=== PATIENT | female | born 1945 | race Hispanic/Latino ===

== ENCOUNTER 2017-04-26 06:17 | Day surgery (SDC) | payer OTHER ==
[~2017-04-26] VITALS: Ht 162.6 cm; Wt 81.1 kg
[~2017-04-26 06:17] MED LIST: ASPI-1181 PO; CHRO1TAB7 PO; DOCU100T9 PO; GABA-531 PO; LOSA100T29 PO; METF10004 PO; MULT-952 PO; PRAV20TA4 PO; VERE240SR PO; VITAMIN B12 PO
[2017-04-26] MEDS ORDERED: SODIUM CHLORIDE 0.9% 1000ML 1,000 ML IV ONE (06:33)
[2017-04-26 07:26] VITALS: BP 155/82
[2017-04-26] MEDS ORDERED: PROPOFOL 10 MG/ML 20ML VIAL IV ONE ×2 (09:53)
[2017-04-26 10:10] VITALS: BP 101/51
== END 2017-04-26 10:45 | disposition home or self-care (01) ==
LOC: ENDO 06:17 → DAH 06:17 → ENDO 10:45
PROVIDERS: ATTEND Internal Medicine
DX: C21.8 Malignant neoplasm of overlapping sites of rectum, anus and anal canal (principal); C20 Malignant neoplasm of rectum; K56.2 Volvulus; E11.9 Type 2 diabetes mellitus without complications; E78.4 Other hyperlipidemia; I10 Essential (primary) hypertension; Z90.49 Acquired absence of other specified parts of digestive tract; Z90.710 Acquired absence of both cervix and uterus; Z98.890 Other specified postprocedural states; Z79.84 Long term (current) use of oral hypoglycemic drugs; Z79.899 Other long term (current) drug therapy; Z68.30 Body mass index [BMI] 30.0-30.9, adult
CPT/HCPCS: 45341; 82948 ×2; 93005; A4606; J2704 ×2; J7030